=== PATIENT | female | born 2000 | race Caucasian/White ===

== ENCOUNTER 2019-05-23 20:20 | Emergency (ER) | payer SELFPAY ==
[2019-05-24] MEDS: ONDANSETRON 4 MG INJ IV (00:55)
[2019-05-24] MEDS: morphine 2 MG INJ IV (00:55)
[2019-05-24] MEDS: SOD CHLORIDE 0.9% 1,000 ML IV (00:55)
[2019-05-24 01:06] LABS: ADD MAN DIFF? NO
[2019-05-24 01:08] LABS: BASOPHILS % 0.4 % (0.0-2.0); EOSINOPHILS # 0.3 10^3/ul (0.0-0.5); HEMOGLOBIN 12.8 g/dl (12.0-16.0); LYMPHOCYTES # 3.7 10^3/ul (0.8-2.9); LYMPHOCYTES % 48.8 % (18.0-55.0); MEAN CORPUSCULAR HEMOGLOBIN 26.4 pg (29.0-33.0); MEAN CORPUSCULAR VOLUME 82.6 fl (72.0-104.0); MEAN PLATELET VOLUME 10.8 fl (7.4-10.4); MONOCYTE # 0.5 10^3/ul (0.3-0.9); MONOCYTES % 6.1 % (0.0-13.0); NEUTROPHILS % 40.6 % (30.0-74.0); PLATELET COUNT 381 10^3/UL (140-415); RED BLOOD COUNT 4.84 10^6/ul (4.20-5.40); RED CELL DISTRIBUTION WIDTH 13.9 % (11.5-14.5)
[2019-05-24 01:08] LABS: WHITE BLOOD COUNT 7.5 10^3/ul (4.8-10.8)
[2019-05-24 01:22] LABS: ADD UMIC YES; UR ASCORBIC ACID NEGATIVE (NEGATIVE); UR BACTERIA FEW /HPF (NONE SEEN); UR BILIRUBIN (Dip) NEGATIVE (NEGATIVE); UR BLOOD (Dip) NEGATIVE (NEGATIVE); UR CLARITY CLOUDY (CLEAR); UR COLOR YELLOW (YELLOW); UR GLUCOSE (Dip) NEGATIVE (NEGATIVE); UR KETONES (Dip) NEGATIVE (NEGATIVE); UR LEUKOCYTE ESTERASE (Dip) NEGATIVE Leu/ul (NEGATIVE); UR MUCUS FEW /HPF (NONE SEEN); UR NITRITE (Dip) NEGATIVE (NEGATIVE); UR RBC 2 /HPF (0-5); UR SPECIFIC GRAVITY (Dip) 1.026 (1.003-1.030); UR SQUAMOUS EPITHELIAL CELL MODERATE /HPF (FEW); UR TOTAL PROTEIN (Dip) NEGATIVE (NEGATIVE); UR UROBILINOGEN (Dip) NEGATIVE (NEGATIVE); UR WBC 4 /HPF (0-5)
[2019-05-24 01:30] LABS: ALANINE AMINOTRANSFERASE 101 IU/L (13-69); ALBUMIN 4.8 g/dl (3.3-4.9); ALBUMIN/GLOBULIN RATIO 1.37; ALKALINE PHOSPHATASE 85 IU/L (42-121); ANION GAP 12 (5-13); ASPARTATE AMINO TRANSFERASE 62 IU/L (15-46); BILIRUBIN,INDIRECT 0.4 mg/dl (0-1.1); BILIRUBIN,TOTAL 0.4 mg/dl (0.2-1.3); BLOOD UREA NITROGEN 12 mg/dl (7-20); CALCIUM 9.7 mg/dl (8.4-10.2); CARBON DIOXIDE 26 mmol/L (21-31); CHLORIDE 106 mmol/L (97-110); Estimated GFR > 60 mL/min (>60); GLUCOSE 112 mg/dl (70-220); LIPASE 98 U/L (23-300); POTASSIUM 4.1 mmol/L (3.5-5.1); SODIUM 144 mmol/L (135-144); TOTAL PROTEIN 8.3 g/dl (6.1-8.1)
[2019-05-24] MEDS ORDERED: HYDROmorphONE 2 MG/ML SYG IM (03:42)
[2019-05-24] MEDS: HYDROmorphONE 0.5 MG/0.5 ML SYG IV (03:49)
== END 2019-05-24 05:07 | disposition home or self-care (01) ==
LOC: FTE 05-24 05:07
DX: C57.4 Malignant neoplasm of uterine adnexa, unspecified (principal); R11.10 Vomiting, unspecified
CPT/HCPCS: 36415; 74176; 76830; 76856; 80053; 81001; 81025; 83690; 85025; 96361; 96374; 96375; 99285-25

== ENCOUNTER 2019-06-03 12:13 | Emergency (ER) | payer SELFPAY ==
[2019-06-03] MEDS: LIDOCAINE 1% (MDV) 20 ML INJ SC ×2 (13:44→14:04)
[2019-06-03] MEDS: CEFTRIAXONE 1 GM INJ IM (13:45)
== END 2019-06-03 15:43 | disposition home or self-care (01) ==
LOC: E/R 12:13 → FTE 15:43
DX: L02.412 Cutaneous abscess of left axilla (principal)
CPT/HCPCS: 96372; 99284-25; J0696

== ENCOUNTER 2019-06-06 11:06 | Emergency (ER) | payer MEDICAID | END 2019-06-06 12:19 | disposition home or self-care (01) | LOC: E/R 11:06 | DX: Z48.01 Encounter for change or removal of surgical wound dressing (principal) | CPT/HCPCS: 99281; Z7502 ==

== ENCOUNTER 2019-06-08 11:17 | Emergency (ER) | payer MEDICAID | END 2019-06-08 12:30 | disposition home or self-care (01) | LOC: E/R 11:17 | DX: Z48.01 Encounter for change or removal of surgical wound dressing (principal) | CPT/HCPCS: 99281 ==